=== PATIENT | female | born 1985 | race Caucasian/White ===

== ENCOUNTER 2017-09-04 06:41 | Day surgery (SDC) | payer MEDICAID ==
[~2017-09-04 06:41] MED LIST: Dextrose 5%-0.45% NaCl 1,000 ML IV SCH; Midazolam 1 MG/ML 2 ML SDV ONE; Sodium Chloride 0.9% 10 ML Syringe FLUSH PRN; fentaNYL 100 MCG/2 ML SDV ONE
[2017-09-04] MEDS ORDERED: VWF IV ONE ×2 (06:42→07:00)
[2017-09-04] MEDS ORDERED: fentaNYL 100 MCG/2 ML SDV IV ONE ×3 (06:42→08:45)
[2017-09-04] MEDS ORDERED: Midazolam 1 MG/ML 2 ML SDV IV ONE ×7 (06:42→08:51)
[2017-09-04] MEDS ORDERED: ANTIHEMOPHILIC FACTOR IV ONE ×2 (06:42→07:00)
[2017-09-04] MEDS ORDERED: Dextrose 5%-0.45% NaCl 1,000 ML IV SCH (07:47)
--- NOTE | 2017-09-04 09:29 | OR ---
DATE: 09/04/2017 PROCEDURES PERFORMED: Total colonoscopy, terminal ileoscopy, NBI, and multiple pinch biopsies. INSTRUMENT USED: PCF-H180AL Olympus colonoscope. PREMEDICATIONS: Fentanyl 100 mcg intravenous and Versed 4 mg intravenous. The procedure was done under pulse oximetry, BP recording, and radiation monitor. INDICATIONS: The patient with chronic diarrhea and rectal bleeding, unexplained and not responsive to medical measures. Colonoscopic examination is done for detection of any polypoid lesions and removal, biopsies to be obtained for microscopic colitis, endoscopic hemostasis therapy if needed. DESCRIPTION OF PROCEDURE: Initial rectal exam was unremarkable. Rigid anoscopy was normal. The colonoscope was passed with ease up to and beyond the ileocecal junction to visualize normal-appearing terminal ileum, NBI views were taken, photographs were obtained, pinch biopsies were obtained and sent for histopathology. Photographs were taken of the normal-appearing cecum. No bleeding was noted from any of the visualized areas at the commencement of the examination. The bowel preparation was adequate. No stricture. No vascular ectasia. No large isolated ulcerations seen. No evidence of diffuse inflammatory bowel disease in the form of friability, contact bleeding, or ulcerations. No polyp or tumor mass identified. Probing the proximal sides of folds and flexures, using adequate distention and clearing of the stool material, withdrawal of the scope was made. Multiple pinch biopsies were taken from the normal-appearing mucosa of the mid transverse colon, mid descending colon, and rectosigmoid and sent for any histopathologic evidence of microscopic colitis. No bleeding was noted from any of the visualized areas at the completion of examination. IMPRESSION: Normal study. The patient tolerated the procedure well. [facility] /[id number]
[2017-09-04 10:53] VITALS: BP 111/71
== END 2017-09-04 11:00 | disposition home or self-care (01) ==
LOC: DL.ENDO 06:41
PROVIDERS: ATTEND Internal Medicine Gastroenterology
DX: K52.9 Noninfective gastroenteritis and colitis, unspecified (principal); K62.5 Hemorrhage of anus and rectum; D68.0 Von Willebrand disease; E66.09 Other obesity due to excess calories; F41.1 Generalized anxiety disorder; F32.9 Major depressive disorder, single episode, unspecified; Z88.0 Allergy status to penicillin; Z88.1 Allergy status to other antibiotic agents; Z80.0 Family history of malignant neoplasm of digestive organs; Z90.49 Acquired absence of other specified parts of digestive tract
CPT/HCPCS: 45380; 81025; J2250; J3010; J7042; J7050; J7187

== ENCOUNTER 2018-04-15 11:19 | Emergency (ER) | payer MEDICAID ==
--- NOTE | 2018-04-15 11:26 | EDM.PDOC ---
ED HPI GENERAL MEDICAL PROBLEM - General Chief Complaint: Chest Pain Stated Complaint: CHEST PAIN/[id number] Time Seen by Provider: 04/15/18 11:25 Source of Information: Reports: Patient, RN, RN Notes Reviewed History Limitations: Reports: No Limitations - History of Present Illness INITIAL COMMENTS - FREE TEXT/NARRATIVE: Pt arrives to ER from home by POV with c/o onset yesterday of generalized body aches, malaise,nausea, lightheadedness, chills, and feeling "unwell" in general. Today she woke with chest pain, so she came to the ER. Denies cough, shortness of breath, edema, palpitations, orthopnea, or syncope. Pt denies . LMP apprx. 3 weeks ago. Onset: Sudden Onset Date: 04/14/18 Duration: Constant, Getting Worse Location: Reports: Chest, Generalized Quality: Reports: Ache, Pressure Severity: Moderate Improves with: Reports: None Worsens with: Reports: None Associated Symptoms: Reports: No Other Symptoms Chest Pain Score (Numeric/FACES): 7 - Related Data Allergies Allergy/AdvReac Type Severity Reaction Status Date / Time ciprofloxacin [From Cipro] Allergy Hives Verified 04/15/18 12:16 ciprofloxacin HCl Allergy Hives Verified 04/15/18 12:16 [From Cipro] penicillin Allergy Hives Verified 04/15/18 12:16 Home Meds: Home Meds Norgestimate-Ethinyl Estradiol [Tri-Linyah Tablet] 1 tab PO DAILY 08/26/17 [ History] Venlafaxine HCl [Venlafaxine ER] 150 mg PO DAILY 08/26/17 [History] Gabapentin [Neurontin] 200 mg PO DAILY 04/15/18 [History] Past Medical History HEENT History: Reports: None Cardiovascular History: Reports: None Respiratory History: Reports: None Gastrointestinal History: Reports: Chronic Diarrhea Genitourinary History: Reports: None [employer]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: Musculoskeletal History: Reports: Back Pain, Chronic, Fracture Other Musculoskeletal History: HX OF FEMUR FRACTURE Neurological History: Reports: None Psychiatric History: Reports: Anxiety, Depression, Panic Attack Endocrine/Metabolic History: Reports: Obesity/BMI 30+ Hematologic History: Reports: Other (See Below) Other Hematologic History: LOW VON WIL[place] FACTOR (vWF) RISTOCETIN COFACTOR ACTIVITY - ON DDAVP Immunologic History: Reports: None Oncologic (Cancer) History: Reports: None Other Dermatologic History: H/O HERPES LABIALIS - Infectious Disease History Infectious Disease History: Reports: Chicken Pox - Past Surgical History Head Surgeries/Procedures: Reports: None HEENT Surgical History: Reports: None Cardiovascular Surgical History: Reports: None Respiratory Surgical History: Reports: None GI Surgical History: Reports: Cholecystectomy Female Surgical History: Reports: None Endocrine Surgical History: Reports: None Neurological Surgical History: Reports: None Musculoskeletal Surgical History: Reports: Other (See Below) Other Musculoskeletal Surgeries/Procedures:: broken femur with surgical repair Oncologic Surgical History: Reports: None Dermatological Surgical History: Reports: None Social & Family History - Family History OBGYN: Reports: , Other (See Below) Other OBGYN Family History: MULTIPLE BIRTHS Psychiatric: Reports: Bipolar Other Endocrine/Metabolic Family History: THYRIOD DISEASE Oncologic: Reports: Leukemia - Tobacco Use Smoking Status *Q: Current Every Day Smoker Tobacco Use Within Last Twelve Months: Cigarettes - Caffeine Use Caffeine Use: Reports: Soda Other Caffeine Use: 2 cans daily - Recreational Drug Use Recreational Drug Use: No - Living Situation & Occupation Living situation: Reports: , with Family Occupation: Employed ED ROS GENERAL - Review of Systems Review Of Systems: ROS reveals no pertinent complaints other than HPI. ED EXAM, GENERAL - Physical Exam Exam: See Below Exam Limited By: No Limitations General Appearance: Alert, WD/WN, No Apparent Distress, Anxious, Obese Eye Exam: Bilateral Eye: Normal Inspection Ears: Normal External Exam, Hearing Grossly Normal Nose: Normal Inspection, Normal Mucosa, No Blood Throat/Mouth: Normal Inspection, Normal Lips, Normal Teeth, Normal Gums, Normal Oropharynx, Normal Voice, No Airway Compromise Head: Atraumatic, Normocephalic Neck: Normal Inspection, Supple, Non-Tender, Full Range of Motion Respiratory/Chest: No Respiratory Distress, Lungs Clear, Normal Breath Sounds, No Accessory Muscle Use, Chest Non-Tender Cardiovascular: Normal Peripheral Pulses, Regular Rate, Rhythm, No Edema, No Gallop, No JVD, No Murmur, No Rub GI/Abdominal: Normal Bowel Sounds, Soft, Non-Tender, No Organomegaly, No Distention, No Abnormal Bruit, No Mass (Female) Exam: Deferred Rectal (Female) Exam: Deferred Back Exam: Normal Inspection, Full Range of Motion, NT Extremities: Normal Inspection, Normal Range of Motion, Non-Tender, Normal Capillary Refill, No Pedal Edema Neurological: Alert, Oriented, CN II-XII Intact, Normal Cognition, Normal Gait, Normal Reflexes, No Motor/Sensory Deficits Psychiatric: Anxious Skin Exam: Warm, Dry, Intact, Normal Color, No Rash EKG INTERPRETATION EKG Date: 04/15/18 Time: 11:28 Rhythm: NSR Rate (Beats/Min): 75 [place]: Normal P-Wave: Present QRS: Normal ST-T: Normal QT: Normal Comparison: NA - No Prior EKG Course - Vital Signs Last Recorded V/S: Last Vital Signs Temp 35.9 C 04/15/18 11:57 Pulse 94 04/15/18 11:28 Resp 16 04/15/18 11:28 BP 138/83 04/15/18 11:28 Pulse Ox 98 04/15/18 11:28 - Orders/Labs/Meds Orders: Active Orders 24 hr Category Date Time Status EKG 12 Lead [EKG Documentation Completion] [RC] STAT Care 04/15/18 11:30 Active Peripheral IV Care [RC] . DIRECTED Care 04/15/18 11:30 Active CULTURE URINE [RM] Stat Lab 04/15/18 12:25 Received Sodium Chloride 0.9% [Saline Flush] Med 04/15/18 11:30 Active 10 ml FLUSH ASDIRECTED PRN Peripheral IV Insertion Adult [OM.PC] Stat Oth 04/15/18 11:30 Ordered Medication Orders Sodium Chloride (Saline Flush) 10 ml FLUSH ASDIRECTED PRN PRN Reason: Keep Vein Open Last Admin: 04/15/18 11:43 Dose: 10 ml Labs: Laboratory Tests 04/15/18 04/15/18 04/15/18 Range/Units 11:40 11:40 12:25 WBC 11.5 H (5.0-10.0) 10^3/uL RBC 4.28 (4.2-5.4) 10^6/uL Hgb 13.5 D (12.0-16.0) g/dL Hct 37.9 (37.0-47.0) % MCV 88.6 D (80-100) fL MCH 31.5 (27.0-34.0) pg MCHC 35.6 H (33.0-35.0) g/dL Plt Count 257 D (150-450) 10^3/uL Neut % (Auto) 70.9 (42.2-75.2) % Lymph % (Auto) 22.2 (20.5-50.1) % [place] % (Auto) 5.6 (2-8) % Eos % (Auto) 1.0 (1.0-3.0) % Baso % (Auto) 0.3 (0.0-1.0) % Sodium 132 L (135-145) mmol/L Potassium 3.5 L (3.6-5.0) mmol/L Chloride 101 (101-111) mmol/L Carbon Dioxide 19.0 L (21.0-31.0) mmol/L Anion Gap 15.5 BUN 9 (7-18) mg/dL Creatinine 0.6 (0.6-1.3) mg/dL Est Cr Clr Drug Dosing 112.38 mL/min Estimated GFR (MDRD) > 60 BUN/Creatinine Ratio 15.00 Glucose 85 (74-105) mg/dL Calcium 8.8 (8.4-10.2) mg/dl Total Bilirubin 0.5 (0.2-1.0) mg/dL AST 19 (10-42) IU/L ALT 13 (10-60) IU/L Alkaline Phosphatase 46 (42-121) IU/L Troponin I < 0.02 (0.00-0.02) ng/ml Total Protein 7.1 (6.7-8.2) g/dl Albumin 4.0 (3.2-5.5) g/dl Globulin 3.1 Albumin/Globulin Ratio 1.29 Urine Color Yellow (YELLOW) Urine Appearance Clear (CLEAR) Urine pH 7.0 (5.0-9.0) Ur Specific [place] 1.020 (1.005-1.030) Urine Protein Negative (NEGATIVE) Urine Glucose (UA) Negative (NEGATIVE) Urine Ketones Negative (NEGATIVE) Urine Occult Blood Trace-intact H (NEGATIVE) Urine Nitrite Negative (NEGATIVE) Urine Bilirubin Negative (NEGATIVE) Urine Urobilinogen 0.2 (0.2-1.0) mg/dL Ur Leukocyte Esterase Small H (NEGATIVE) Urine RBC Not seen /HPF Urine WBC 0-5 (0-5/HPF) /HPF Ur Epithelial Cells Many H /HPF Urine Bacteria Few (0-FEW/HPF) /HPF Urine Mucus Moderate H /LPF Urine HCG, Qual 04/15/18 Range/Units 12:25 WBC (5.0-10.0) 10^3/uL RBC (4.2-5.4) 10^6/uL Hgb (12.0-16.0) g/dL Hct (37.0-47.0) % MCV (80-100) fL MCH (27.0-34.0) pg MCHC (33.0-35.0) g/dL Plt Count (150-450) 10^3/uL Neut % (Auto) (42.2-75.2) % Lymph % (Auto) (20.5-50.1) % [place] % (Auto) (2-8) % Eos % (Auto) (1.0-3.0) % Baso % (Auto) (0.0-1.0) % Sodium (135-145) mmol/L Potassium (3.6-5.0) mmol/L Chloride (101-111) mmol/L Carbon Dioxide (21.0-31.0) mmol/L Anion Gap BUN (7-18) mg/dL Creatinine (0.6-1.3) mg/dL Est Cr Clr Drug Dosing mL/min Estimated GFR (MDRD) BUN/Creatinine Ratio Glucose (74-105) mg/dL Calcium (8.4-10.2) mg/dl Total Bilirubin (0.2-1.0) mg/dL AST (10-42) IU/L ALT (10-60) IU/L Alkaline Phosphatase (42-121) IU/L Troponin I (0.00-0.02) ng/ml Total Protein (6.7-8.2) g/dl Albumin (3.2-5.5) g/dl Globulin Albumin/Globulin Ratio Urine Color (YELLOW) Urine Appearance (CLEAR) Urine pH (5.0-9.0) Ur Specific [place] (1.005-1.030) Urine Protein (NEGATIVE) Urine Glucose (UA) (NEGATIVE) Urine Ketones (NEGATIVE) Urine Occult Blood (NEGATIVE) Urine Nitrite (NEGATIVE) Urine Bilirubin (NEGATIVE) Urine Urobilinogen (0.2-1.0) mg/dL Ur Leukocyte Esterase (NEGATIVE) Urine RBC /HPF Urine WBC (0-5/HPF) /HPF Ur Epithelial Cells /HPF Urine Bacteria (0-FEW/HPF) /HPF Urine Mucus /LPF Urine HCG, Qual Positive Influenza A/B: negative Meds: Medications Generic Name Dose Route Start Last Admin Trade Name Freq PRN Reason Stop Dose Admin Sodium Chloride 10 ml 04/15/18 11:30 04/15/18 11:43 Saline Flush FLUSH 10 ml ASDIRECTED PRN Administration Keep Vein Open Discontinued Medications Generic Name Dose Route Start Last Admin Trade Name Freq PRN Reason Stop Dose Admin Sodium Chloride 1,000 mls @ 999 mls/hr 04/15/18 11:30 04/15/18 11:43 Normal Saline IV 04/15/18 12:30 999 mls/hr .BOLUS ONE Administration - Radiology Interpretation Free Text/Narrative:: CXR: no acute process, see Rad. report. Departure - Departure Time of Disposition: 13:02 Disposition: Home, Self-Care 01 Condition: Good Clinical Impression: Acute viral syndrome, Positive test Forms: ED Department Discharge Additional Instructions: Rest, drink plenty of water. Call the clinic to schedule an appointment for evaluation for next week. Return to ER if any further problems. - My Orders Last 24 Hours: My Active Orders 04/15/18 11:30 EKG 12 Lead [EKG Documentation Completion] [RC] STAT Peripheral IV Care [RC] . DIRECTED Sodium Chloride 0.9% [Saline Flush] 10 ml FLUSH ASDIRECTED PRN Peripheral IV Insertion Adult [OM.PC] Stat 04/15/18 12:25 CULTURE URINE [RM] Stat - Assessment/Plan Last 24 Hours: My Active Orders 04/15/18 11:30 EKG 12 Lead [EKG Documentation Completion] [RC] STAT Peripheral IV Care [RC] . DIRECTED Sodium Chloride 0.9% [Saline Flush] 10 ml FLUSH ASDIRECTED PRN Peripheral IV Insertion Adult [OM.PC] Stat 04/15/18 12:25 CULTURE URINE [RM] Stat
[2018-04-15 11:29] VITALS: BP 138/83
[2018-04-15] MEDS ORDERED: Sodium Chloride 0.9% 10 ML Syringe FLUSH PRN (11:30)
[2018-04-15] MEDS ORDERED: Sodium Chloride 0.9% 1,000 ML IV ONE (11:30)
[2018-04-15 12:06] LABS: ANION GAP 15.5; CHLORIDE,CL 101 mmol/L (101-111); SODIUM,NA 132 mmol/L (135-145)
--- NOTE | 2018-04-15 12:58 | CR ---
Clinical history: 32-year-old female chest pain. Interpretation: Negative. Normal cardiac silhouette and pulmonary vascularity (external cyberathlete leads). No signs of alveolar edema or dependent pleural effusion. No lung mass, hilar lymphadenopathy or focal lobar pneumonia. No atelectasis/collapse. No pneumothorax or free subdiaphragmatic air. CONCLUSION: No acute cardiopulmonary abnormality.
== END 2018-04-15 13:13 | disposition home or self-care (01) ==
LOC: DL.ED 11:19
DX: O98.511 Other viral diseases complicating pregnancy, first trimester (principal); B34.9 Viral infection, unspecified; O99.211 Obesity complicating pregnancy, first trimester; O99.331 Smoking (tobacco) complicating pregnancy, first trimester; F17.210 Nicotine dependence, cigarettes, uncomplicated; Z88.0 Allergy status to penicillin; Z88.1 Allergy status to other antibiotic agents; Z90.49 Acquired absence of other specified parts of digestive tract
CPT/HCPCS: 36415; 71045; 80053; 81001; 81025; 84484; 85025; 87086; 87804; 93005; 96360; 99285; J7030

== ENCOUNTER 2022-05-04 01:33 | Emergency (ER) | payer MEDICAID ==
[2022-05-04 01:53] VITALS: BP 104/75; PULSE 88
== END 2022-05-04 02:54 | disposition left against medical advice (07) ==
LOC: DL.ED 01:33
DX: Z53.21 Procedure and treatment not carried out due to patient leaving prior to being seen by health care provider (principal)